=== PATIENT | male | born 1970 | race Caucasian/White ===

== ENCOUNTER 2016-12-01 11:13 | Emergency (ER) | payer OTHER ==
[2016-12-01 11:22] VITALS: BP 105/74; PULSE 86; TEMP 97.8; BMI 24.3
--- NOTE | 2016-12-01 12:25 | PDOC ---
History of Present Illness - General Chief Complaint: Foreign Body (FB) Stated Complaint: SPLINTER RIGHT FOOT Time Seen by Provider: 12/01/16 11:19 History Source: Patient Exam Limitations: No Limitations - History of Present Illness Initial Comments: CHIEF COMPLAINT: Pain in right foot HISTORY OF PRESENT ILLNESS: This is a healthy 46-year-old man who presents complaining of a splinter in the right foot. He states his tried to get it out but could not get it all out. She was able to take out a little bit of dark material. He still has sensitivity when bearing weight in that area. There is no fever or chills. There was some broken glass recently at home, and he also is concerned that there could be glass in the area. REVIEW OF SYSTEMS: No fever or chills No headache or sore throat No other complaints Past History - Past Medical History Allergies/Adverse Reactions: Allergies Allergy/AdvReac Type Severity Reaction Status Date / Time Penicillins Allergy Unknown Verified 12/01/16 11:15 Home Medications: Ambulatory Orders Naproxen [Naprosyn -] 250 mg PO BID PRN #14 tablet 12/01/16 Asthma: Yes - Immunization History Tetanus Status: Less than 5 years (He states vaccinated last year for his trip to [facility]) - Psycho/Social/Smoking Cessation Hx Anxiety: No Suicidal Ideation: No Smoking History: Never smoked Have you smoked in the past 12 months: No Information on smoking cessation initiated: No Hx Alcohol Use: No Drug/Substance Use Hx: No Substance Use Type: None *Physical Exam - Vital Signs Last Vital Signs Temp Pulse Resp BP Pulse Ox 97.8 F 86 18 105/74 100 12/01/16 11:16 12/01/16 11:16 12/01/16 11:16 12/01/16 11:16 12/01/16 11:16 - Physical Exam Comments: 12/01/16 12:21 GENERAL: [The patient is awake, alert, and fully oriented, in no acute distress. ] HEAD: [Normal with no signs of trauma.] EYES: [Pupils equal, round and reactive to light, extraocular movements intact, sclera anicteric, conjunctiva clear.] EXTREMITIES: [Normal range of motion, no edema.] NEUROLOGICAL: [Normal speech, normal gait.] PSYCH: [Normal mood, normal affect.] SKIN: The right foot has a small dark spot which is the sensitive spot on the sole of the foot, near the area of the distal third metatarsal. No erythema. No discharge. Skin cleansed with septic. Right foot splinter removed with 18-gauge needle tip. Bacitracin and Band-Aid applied. Procedures - Additional Procedures Progress: 12/01/16 12:23 Foreign body removal. Skin prepped with antiseptic 18-gauge needle used to remove subcutaneous foreign body in the sole of the right foot Bacitracin and Band-Aid applied ED Treatment Course - RADIOLOGY Radiology Studies Ordered: Category Date Time Status FOOT-RIGHT [RAD] Stat Radiology 12/01/16 11:32 Completed Medical Decision Making - Medical Decision Making 12/01/16 12:23 Patient with foreign body sensation in the right foot. On examination there is a small splinter, dark, which was removed by me with a needle. X-ray performed to rule out foreign body. I reviewed the x-ray and do not see any foreign body. The radiologist concurred. Patient is stable for discharge. There is no sign of infection in the foot. *DC/Admit/Observation/Transfer Diagnosis at time of Disposition: Foreign body in foot Qualifiers: Encounter type: initial encounter Laterality: right Qualified Code(s): S90.851A - Superficial foreign body, right foot, initial encounter - Discharge Dispostion Disposition: HOME Condition at time of disposition: Stable Admit: No - Prescriptions Prescriptions: Naproxen [Naprosyn -] 250 mg PO BID PRN #14 tablet PRN Reason: Pain - Patient Instructions Printed Discharge Instructions: DI for Removal of Foreign Body From Skin Additional Instructions: You were seen today for a splinter in your right foot. The x-ray shows no glass or foreign body inside the foot. A small dark splinter was removed with a tiny needle by the doctor. Bacitracin antibiotic and a Band-Aid was applied. Be sure to wash the area daily. Watch for any signs of infection. We expect that your sensitivity in that area should be going away over the next 2-3 days. If you have any further problems, follow up with your primary care physician or return to the emergency department.
== END 2016-12-01 12:40 | disposition home or self-care (01) ==
LOC: FER 11:13
PROC: 0HCMXZZ Extirpation of Matter from Right Foot Skin, External Approach (ICD-10-PCS; principal; 2016-12-01)
DX: S90.851A Superficial foreign body, right foot, initial encounter (principal); X58.XXXA Exposure to other specified factors, initial encounter; Y93.89 Activity, other specified; Y92.9 Unspecified place or not applicable; J45.909 Unspecified asthma, uncomplicated
CPT/HCPCS: 73630-TC-RT; 99281-25